=== PATIENT | female | born 1970 | race Caucasian/White ===

== ENCOUNTER → 2016-12-12 | Outpatient (REF) | payer MEDICARE, MEDICAID | LOC: M LAB REF 12:24 | PROVIDERS: ATTEND Physician Assistant Medical | DX: J02.9 Acute pharyngitis, unspecified (principal) ==

== ENCOUNTER → 2017-06-30 | Outpatient (CLI) | payer MEDICARE, MEDICAID ==
--- NOTE | 2017-06-30 10:47 | REPMRS ---
Patient History The patient states she had a clinical breast exam in 05/31 Patient is nulliparous. Family history of prostate cancer in maternal grandfather. Took unspecified hormones for 1 year. Digital Woman Screen Mammo: June 30, 2017 - Exam #: [id number] Bilateral CC and MLO view(s) were taken. Technologist: Kimberly Wells, Technologist Prior study comparison: July 03, 2016, digital woman screen mammo performed at [facility]. June 27, 2015, digital woman screen mammo performed at [facility] to [facility]. FINDINGS: The breast tissue is heterogeneously dense. This may lower the sensitivity of mammography. There has been no change in the appearance of the mammogram from the prior studies. There is a moderate amount of residual fibroglandular tissue which is fairly symmetric. There is no interval development of dominant mass, areas of architectural distortion, or clustered microcalcification typical of malignancy. ASSESSMENT: BI-RADS/ACR category 1 mammogram. Negative. Recommendation Routine screening mammogram in 1 year (for women over age 40). This mammogram was interpreted with the aid of an FDA-approved computer-aided dectection system. Electronically Signed By: Ethan Guaman MD 06/30/17 [id number]
== END ==
LOC: M WHC 09:17
PROVIDERS: ATTEND Physician Assistant
DX: Z12.31 Encounter for screening mammogram for malignant neoplasm of breast (principal)

== ENCOUNTER → 2018-06-06 | Outpatient (REF) | payer MEDICARE, MEDICAID | LOC: M LAB REF 21:27 | DX: J02.9 Acute pharyngitis, unspecified (principal) | CPT/HCPCS: 87070 ==

== ENCOUNTER 2018-06-27 09:59 | Emergency (ER) | payer MEDICARE, MEDICAID | END 2018-06-27 10:15 | disposition left against medical advice (07) | LOC: M ED 09:59 | DX: Z53.21 Procedure and treatment not carried out due to patient leaving prior to being seen by health care provider (principal) ==

== ENCOUNTER → 2018-06-30 | Outpatient (CLI) | payer MEDICARE, MEDICAID | LOC: M WHC 09:17 | DX: Z12.31 Encounter for screening mammogram for malignant neoplasm of breast (principal); Z92.29 Personal history of other drug therapy | CPT/HCPCS: 77067 ==

== ENCOUNTER 2018-09-29 09:30 | Emergency (ER) | payer MEDICARE, MEDICAID ==
[~2018-09-29] VITALS: Ht 162.6 cm; Wt 70.4 kg
[2018-09-29] MEDS ORDERED: DIAZ5TAB (09:47)
[2018-09-29] MEDS ORDERED: AMIT10TA (09:47)
[2018-09-29] MEDS ORDERED: LORA-243 (09:47)
[2018-09-29] MEDS ORDERED: CHLOR10TA (09:47)
[2018-09-29 10:25] LABS: HEMATOCRIT 46.9 % (36.0-47.0); HEMOGLOBIN 15.6 g/dl (12.0-15.5); MEAN CORPUSCULAR HEMOGLOBIN 28.3 pg (27.0-33.0); MEAN CORPUSCULAR HGB CONC 33.3 g/dl (32.0-36.5); PLATELET COUNT, AUTOMATED 255 10^3/uL (150-450); RED BLOOD COUNT 5.52 10^6/uL (4.00-5.40); WHITE BLOOD COUNT 9.2 10^3/uL (4.0-10.0)
[2018-09-29 10:49] LABS: BLOOD UREA NITROGEN 15 MG/DL (7-18); CALCIUM LEVEL 8.9 MG/DL (8.5-10.1); CARBON DIOXIDE LEVEL 26 MEQ/L (21-32); CHLORIDE LEVEL 108 MEQ/L (98-107); CREATININE FOR GFR 0.82 MG/DL (0.55-1.30); GLOMERULAR FILTRATION RATE > 60.0 (>58); GLUCOSE, FASTING 122 MG/DL (70-100); POTASSIUM SERUM 4.3 MEQ/L (3.5-5.1); SODIUM LEVEL 140 MEQ/L (136-145)
--- NOTE | 2018-09-29 11:36 | REP ---
Pelvic sonography: History: Abnormal vaginal bleeding. Sonographic findings: Transabdominal scanning demonstrates uterine dimensions of 7.2 x 4.2 x 5.9 cm. Nabothian cyst is visible in the cervix. Endometrial echo 0.3 cm thick and centrally placed. Urinary bladder crooks are smooth. Calculated filled bladder volume is 478 ml. Normal ovaries are seen bilaterally. Right ovarian dimensions are 2.4 x 1.0 x 1.3 cm. The left ovary measures 2.3 x 1.4 x 2.3 cm. Impression: No significant abnormality noted. Nabothian cyst in the cervix. Electronically Signed by Alexandru Carrera MD 09/29/2018 11:28 A
[2018-09-29 11:52] VITALS: BP 141/80
== END 2018-09-29 11:53 | disposition home or self-care (01) ==
LOC: M ED 09:30
DX: N88.8 Other specified noninflammatory disorders of cervix uteri (principal)

== ENCOUNTER 2019-01-27 09:24 | Emergency (ER) | payer MEDICARE, MEDICAID ==
[~2019-01-27] VITALS: Ht 162.6 cm; Wt 70.9 kg
[~2019-01-27 09:24] MED LIST: AMIT10TA; CHLOR10TA; DIAZ5TAB; LORA-243
[2019-01-27 09:25] VITALS: BP 133/75
[2019-01-27] MEDS ORDERED: SULF1TAB93 (10:05)
[2019-01-27] MEDS ORDERED: AUGM875T28 PO (10:06)
== END 2019-01-27 10:22 | disposition home or self-care (01) ==
LOC: M ED 09:24
DX: S61.251A Open bite of left index finger without damage to nail, initial encounter (principal); W55.01XA Bitten by cat, initial encounter; Y92.018 Other place in single-family (private) house as the place of occurrence of the external cause; F33.9 Major depressive disorder, recurrent, unspecified; F41.9 Anxiety disorder, unspecified; Z79.899 Other long term (current) drug therapy; Z88.1 Allergy status to other antibiotic agents; Z88.8 Allergy status to other drugs, medicaments and biological substances; F17.210 Nicotine dependence, cigarettes, uncomplicated

== ENCOUNTER 2019-01-28 08:59 | Emergency (ER) | payer MEDICARE, MEDICAID ==
[~2019-01-28] VITALS: Ht 162.6 cm; Wt 70.9 kg
[2019-01-28 08:59] VITALS: BP 152/76
[~2019-01-28 08:59] MED LIST changes: +AUGM875T28 PO; +SULF1TAB93
[2019-01-28] MEDS ORDERED: DERMABOND TOPICAL SKIN ADHESIVE TOP ONE (09:45)
== END 2019-01-28 09:56 | disposition home or self-care (01) ==
LOC: M ED 08:59
DX: S60.478A Other superficial bite of other finger, initial encounter (principal); W55.01XA Bitten by cat, initial encounter; Y92.9 Unspecified place or not applicable; Y93.K9 Activity, other involving animal care; Y99.9 Unspecified external cause status; R73.03 Prediabetes; Z72.0 Tobacco use; Z79.899 Other long term (current) drug therapy; Z88.8 Allergy status to other drugs, medicaments and biological substances; Z88.1 Allergy status to other antibiotic agents

== ENCOUNTER → 2019-06-22 | Outpatient (REF) | payer MEDICARE, MEDICAID ==
[2019-06-24 14:29] LABS: HPV HYBRID CAPTURE II Negative (Negative)
== END ==
LOC: M SFHCWAGY 11:35
PROVIDERS: ATTEND Nurse Practitioner Family
DX: Z12.4 Encounter for screening for malignant neoplasm of cervix (principal)
CPT/HCPCS: 87624; G0123

== ENCOUNTER → 2019-06-22 | Outpatient (CLI) | payer MEDICARE, MEDICAID ==
--- NOTE | 2019-06-22 12:32 | REPMRS ---
Patient History The patient states she had a clinical breast exam in 06/2019. Family history of prostate cancer in maternal grandfather. Took unspecified hormones for 1 year. 3D TOMOSYNTHESIS WAS PERFORMED. The Candy Wong lifetime risk for breast cancer is 9.9%. Digital Woman Screen Mammo: June 22, 2019 - Exam #: [id number] Bilateral CC and MLO view(s) were taken. Technologist: Kimberly Wells, Technologist Prior study comparison: June 30, 2018, bilateral digital woman screen mammo performed at [facility]. June 30, 2017, digital woman screen mammo performed at [facility]. FINDINGS: The breast tissue is heterogeneously dense. This may lower the sensitivity of mammography. There has been no change in the appearance of the mammogram from the prior studies. There is a moderate amount of residual fibroglandular tissue which is fairly symmetric. There is no interval development of dominant mass, areas of architectural distortion, or clustered microcalcification typical of malignancy. Assessment: BI-RADS/ACR category 1 mammogram. Negative Mammogram. Recommendation Routine screening mammogram in 1 year (for women over age 40). This mammogram was interpreted with the aid of an FDA-approved computer-aided dectection system. Electronically Signed By: Ethan Guaman MD 06/22/19 [id number]
== END ==
LOC: M WHC 09:49
PROVIDERS: ATTEND Nurse Practitioner Family
DX: Z01.419 Encounter for gynecological examination (general) (routine) without abnormal findings (principal); Z12.31 Encounter for screening mammogram for malignant neoplasm of breast; Z80.42 Family history of malignant neoplasm of prostate; Z92.29 Personal history of other drug therapy
CPT/HCPCS: 77063; 77067; 87624; G0101; G0123

== ENCOUNTER 2020-06-06 09:29 | Emergency (ER) | payer MEDICARE, MEDICAID ==
[~2020-06-06] VITALS: Ht 162.6 cm; Wt 68.4 kg
[2020-06-06] MEDS ORDERED: GABA-843 (09:38)
[2020-06-06 11:03] LABS: BASO # 0.1 10^3/uL (0.0-0.2); BASO % 0.8 % (0.0-1.0); EOS # 0.1 10^3/uL (0.0-0.5); EOS % 0.7 % (0.0-3.0); HEMATOCRIT 46.7 % (36.0-47.0); HEMOGLOBIN 15.2 g/dl (12.0-15.5); LYMPH # 1.9 10^3/uL (1.5-5.0); LYMPH % 22.3 % (24.0-44.0); MEAN CORPUSCULAR HEMOGLOBIN 28.8 pg (27.0-33.0); MEAN CORPUSCULAR HGB CONC 32.5 g/dl (32.0-36.5); MEAN CORPUSCULAR VOLUME 88.4 fl (80.0-96.0); MONO # 0.6 10^3/uL (0.0-0.8); MONO % 7.2 % (0.0-5.0); NEUTROPHILS # 5.7 10^3/uL (1.5-8.5); NEUTROPHILS % 68.6 % (36.0-66.0); PLATELET COUNT, AUTOMATED 237 10^3/uL (150-450); RED BLOOD COUNT 5.28 10^6/uL (4.00-5.40); WHITE BLOOD COUNT 8.4 10^3/uL (4.0-10.0)
[2020-06-06 11:19] LABS: AMPHETAMINES LEVEL URINE NEGATIVE (NEGATIVE); BARBITURATES URINE NEGATIVE (NEGATIVE); BENZODIAZEPINES URINE POSITIVE (NEGATIVE); CANNABINOIDS URINE NEGATIVE (NEGATIVE); COCAINE METABOLITE URINE NEGATIVE (NEGATIVE); METHADONE URINE NEGATIVE (NEGATIVE); OPIATES URINE NEGATIVE (NEGATIVE); PHENCYCLIDINE URINE NEGATIVE (NEGATIVE)
[2020-06-06 11:33] LABS: ACETAMINOPHEN LEVEL < 2.0 UG/ML (10.0-30.0); ALBUMIN 3.9 GM/DL (3.2-5.2); ALT/SGPT 19 U/L (12-78); BILIRUBIN,DIRECT 0.1 MG/DL (0.0-0.2); BILIRUBIN,TOTAL 0.4 MG/DL (0.2-1.0); BLOOD UREA NITROGEN 14 MG/DL (7-18); CALCIUM LEVEL 9.1 MG/DL (8.5-10.1); CARBON DIOXIDE LEVEL 29 MEQ/L (21-32); CHLORIDE LEVEL 108 MEQ/L (98-107); CREATININE FOR GFR 0.89 MG/DL (0.55-1.30); ETHYL ALCOHOL (ETHANOL) < 0.003 % (0.000-0.010); GLOMERULAR FILTRATION RATE > 60.0 (>51); GLUCOSE, FASTING 107 MG/DL (70-100); LIPASE 77 U/L (73-393); POTASSIUM SERUM 4.7 MEQ/L (3.5-5.1); SALICYLATE LEVEL 6.9 MG/DL (5.0-30.0); SODIUM LEVEL 141 MEQ/L (136-145); TOTAL PROTEIN 7.4 GM/DL (6.4-8.2)
[2020-06-06 11:38] LABS: HCG, SERUM QUALITATIVE NEGATIVE (NEGATIVE)
--- NOTE | 2020-06-06 12:57 | REPVR ---
PROCEDURE INFORMATION: Exam: US Pelvis Complete, Transabdominal and US Pelvis, Transvaginal Exam date and time: 06/06/2020 12:30 PM Age: 49 years old Clinical indication: Menstruation abnormalities; Excessive menstruation; With regular cycle; Additional info: Bilat pelvic pain, heavy menstrual bleeding TECHNIQUE: Imaging protocol: Real-time transabdominal and transvaginal pelvic ultrasound (complete) with image documentation. Transvaginal imaging was used for better evaluation of the endometrium and adnexa. COMPARISON: US PELVIC NON-OB COMPLETE 09/29/2018 10:45 AM FINDINGS: Uterus/cervix: Uterus measures 9.0 x 4.6 x 6.0 cm. There is a simple 2.2 cm ventral cervical nabothian cyst. AP endometrial stripe thickness measures 3 mm. Right adnexa: Right ovary measures 1.3 by 1.3 x 1.0 cm. Positive blood flow. Left adnexa: Left ovary measures 1.3 x 1.4 x 0.6 yrs. Positive blood flow. Intraperitoneal space: None. Bladder: Normal. IMPRESSION: 1. Atrophic endometrium. 2. Incidental large cervical nabothian cyst. Electronically signed by: Elda Vazquez On 06/06/2020 12:57:10 PM
[2020-06-06 13:09] LABS: CHLAMYDIA DNA AMPLIFICATION NEGATIVE (NEGATIVE); GC DNA AMPLIFICATION NEGATIVE (NEGATIVE)
[2020-06-06 13:39] VITALS: BP 124/74
--- NOTE | 2020-06-08 16:49 | ED PDOC ---
Post-Departure Follow-Up pelvic us faxed to dr dill for fu Magali Cloud MD Jun 08, 2020 16:49
== END 2020-06-06 13:41 | disposition home or self-care (01) ==
LOC: M ED 09:29
DX: N88.8 Other specified noninflammatory disorders of cervix uteri (principal); N85.8 Other specified noninflammatory disorders of uterus; N92.0 Excessive and frequent menstruation with regular cycle; E11.9 Type 2 diabetes mellitus without complications; F17.200 Nicotine dependence, unspecified, uncomplicated; Z79.899 Other long term (current) drug therapy; Z88.1 Allergy status to other antibiotic agents; Z88.8 Allergy status to other drugs, medicaments and biological substances
CPT/HCPCS: 36415; 76830; 76856; 80048; 80076; 80307; 81001; 83690; 84443; 84703; 85025; 86850; 86900; 86901; 87210; 87661; 93976; 99284; G0480

== ENCOUNTER → 2020-06-25 | Outpatient (CLI) | payer MEDICARE, MEDICAID ==
[~2020-06-25] MED LIST changes: +GABA-843
--- NOTE | 2020-06-25 11:23 | REPMRS ---
Patient History The patient states she had a clinical breast exam in June 2020. Family history of prostate cancer in maternal grandfather. Took unspecified hormones for 1 year. Digital Woman Screen Mammo: June 25, 2020 - Exam #: [id number] Bilateral CC and MLO view(s) were taken. Technologist: Benita Henriquez Technologist Prior study comparison: June 22, 2019, bilateral digital woman screen mammo performed at [facility]. June 30, 2018, bilateral digital woman screen mammo performed at [facility]. June 30, 2017, digital woman screen mammo performed at [facility]. FINDINGS: The breast tissue is heterogeneously dense. This may lower the sensitivity of mammography. The Volpara volumetric breast density category is: C. There is a 10 mm fat density nodule in the left breast superiorly at approximately 12 o'clock unchanged. This may be a spur small lipoma or conceivably, an oil cyst. In any event, it is benign and unchanged. There is a moderate amount of heterogeneously dense fibroglandular tissue which is fairly symmetric. There is no interval development of dominant mass, architectural distortion, or grouped microcalcification typical of malignancy. There has been no change in the appearance of the mammogram from the prior studies. 3-D tomosynthesis shows no additional findings. Assessment: BI-RADS/ACR category 2 mammogram. Benign Findings. Recommendation Routine screening mammogram of both breasts in 1 year (for women over age 40). This patient's Lifetime Breast Cancer RIsk is estimated at 9.7 %. This mammogram was interpreted with the aid of an FDA-approved computer-aided dectection system. Electronically Signed By: Luis Carrera MD 06/25/20 [id number]
== END ==
LOC: M WHC 09:43
PROVIDERS: ATTEND Nurse Practitioner Family
DX: Z01.419 Encounter for gynecological examination (general) (routine) without abnormal findings (principal); Z12.31 Encounter for screening mammogram for malignant neoplasm of breast; Z92.29 Personal history of other drug therapy; N63.25 Unspecified lump in the left breast, overlapping quadrants
CPT/HCPCS: 77063; 77067; G0101

== ENCOUNTER → 2020-11-20 | Outpatient (REF) | payer MEDICARE, MEDICAID ==
[~2020-11-20] MED LIST changes: -AMIT10TA; +AMIT10TA7; +GABA-282; -GABA-843
== END ==
LOC: M WUC 19:53
PROVIDERS: ATTEND Physician Assistant
DX: J02.9 Acute pharyngitis, unspecified (principal)

== ENCOUNTER → 2021-01-22 | Outpatient (REF) | payer MEDICARE, MEDICAID ==
[~2021-01-22] MED LIST changes: +BACTDSTA; -SULF1TAB93
[2021-01-22 13:04] LABS: APPEARANCE, URINE HAZY (CLEAR); BACTERIA, URINE AUTO 1+ (NEGATIVE); BILIRUBIN, URINE AUTO NEGATIVE (NEGATIVE); BLOOD, URINE BLOOD NEGATIVE (NEGATIVE); COLOR, URINE STRAW (YELLOW); GLUCOSE, URINE (UA) AUTO NEGATIVE (NEGATIVE); KETONE, URINE AUTO NEGATIVE (NEGATIVE); LEUKOCYTE ESTERASE, URINE AUTO NEGATIVE (NEGATIVE); MUCUS, URINE SMALL (NEGATIVE); NITRITE, URINE AUTO NEGATIVE (NEGATIVE); PROTEIN, URINE AUTO NEGATIVE (NEGATIVE); RBC, URINE AUTO 0 /HPF (0-3); SPECIFIC GRAVITY URINE AUTO 1.003 (1.002-1.035); SQUAMOUS EPITHELIAL CELL UR AU 2 /HPF (0-6); UROBILINOGEN, URINE AUTO 0.2 mg/dL (0.0-2.0); WBC, URINE AUTO 0 /HPF (0-3)
== END ==
LOC: M LAB REF 12:24
PROVIDERS: ATTEND Physician Assistant Medical
DX: N39.0 Urinary tract infection, site not specified (principal)

== ENCOUNTER 2021-02-12 16:43 | Inpatient (IN) | payer MEDICARE, MEDICAID ==
[~2021-02-12] VITALS: Ht 162.6 cm; Wt 68.0 kg
[~2021-02-12 16:43] MED LIST changes: -AMIT10TA7; +AMIT10TA7 PO; -CHLOR10TA; +CHLOR10TA PO; -DIAZ5TAB; +DIAZ5TAB PO; -LORA-243; +LORA-243 PO
[2021-02-12] MEDS ORDERED: BACTDSTA PO (18:36)
[2021-02-12] MEDS ORDERED: diazePAM 2 MG TAB PO ONE (18:40)
[2021-02-12] MEDS ORDERED: diazePAM 5MG TABLET PO ONE (18:45)
[2021-02-12 18:59] LABS: HEMOGLOBIN 15.6 g/dl (12.0-15.5); MEAN CORPUSCULAR HEMOGLOBIN 29.3 pg (27.0-33.0); MEAN CORPUSCULAR HGB CONC 32.5 g/dl (32.0-36.5); MEAN CORPUSCULAR VOLUME 90.1 fl (80.0-96.0); PLATELET COUNT, AUTOMATED 262 10^3/uL (150-450); RED BLOOD COUNT 5.33 10^6/uL (4.00-5.40)
[2021-02-12 19:28] LABS: ACETAMINOPHEN LEVEL < 2.0 UG/ML (10.0-30.0); ALBUMIN 4.1 GM/DL (3.2-5.2); ALT/SGPT 22 U/L (12-78); AMPHETAMINES LEVEL URINE NEGATIVE (NEGATIVE); BARBITURATES URINE NEGATIVE (NEGATIVE); BENZODIAZEPINES URINE POSITIVE (NEGATIVE); BILIRUBIN,DIRECT 0.1 MG/DL (0.0-0.2); BILIRUBIN,TOTAL 0.3 MG/DL (0.2-1.0); BLOOD UREA NITROGEN 15 MG/DL (7-18); CANNABINOIDS URINE NEGATIVE (NEGATIVE); CARBON DIOXIDE LEVEL 28 MEQ/L (21-32); CHLORIDE LEVEL 105 MEQ/L (98-107); COCAINE METABOLITE URINE NEGATIVE (NEGATIVE); CREATININE FOR GFR 0.87 MG/DL (0.55-1.30); ETHYL ALCOHOL (ETHANOL) < 0.003 % (0.000-0.010); GLOMERULAR FILTRATION RATE > 60.0 (>51); GLUCOSE, FASTING 106 MG/DL (70-100); METHADONE URINE NEGATIVE (NEGATIVE); OPIATES URINE NEGATIVE (NEGATIVE); PHENCYCLIDINE URINE NEGATIVE (NEGATIVE); POTASSIUM SERUM 4.2 MEQ/L (3.5-5.1); SALICYLATE LEVEL 7.3 MG/DL (5.0-30.0); SODIUM LEVEL 138 MEQ/L (136-145); TOTAL PROTEIN 7.7 GM/DL (6.4-8.2)
[2021-02-12 19:47] LABS: HCG, SERUM QUALITATIVE NEGATIVE (NEGATIVE)
[2021-02-12] MEDS ORDERED: DIAZ5TAB PO (20:37)
[2021-02-12] MEDS: BACTRIM 160MG/800MG DS TAB PO SCH (20:45)
[2021-02-12] MEDS: chlorproMAZINE 25 MG TABLET PO SCH (20:45)
[2021-02-12] MEDS ORDERED: AMITRIPTYLINE 10MG TABLET PO SCH (21:00)
[2021-02-12] MEDS ORDERED: BACTRIM 160MG/800MG DS TAB PO SCH (21:00)
[2021-02-13] MEDS: NICOTINE 21MG/24HR 1 EA TRANSDERMAL TD SCH (09:00)
[2021-02-13] MEDS ORDERED: diazePAM 5MG TABLET PO SCH ×3 (09:00→21:00)
[2021-02-13] MEDS ORDERED: PILL CUTTER 1 EACH XX PRN ×2 (09:15→20:15)
[2021-02-13] MEDS: chlorproMAZINE 25 MG TABLET PO SCH (09:26)
[2021-02-13] MEDS: BACTRIM 160MG/800MG DS TAB PO SCH ×2 (09:27→21:00)
[2021-02-13] MEDS: diazePAM 5MG TABLET PO SCH ×2 (09:35→11:54)
[2021-02-13] MEDS ORDERED: chlorproMAZINE 25 MG TABLET PO SCH ×4 (12:00→21:00)
[2021-02-13 14:27] LABS: RSV AMPLIFICATION NEGATIVE (NEGATIVE)
[2021-02-13] MEDS ORDERED: traZODone 50 MG TAB PO PRN (18:05)
[2021-02-13] MEDS ORDERED: ALBUTEROL 90 MCG/ACT 8GM HFA INHALER INH PRN (18:05)
[2021-02-13] MEDS ORDERED: ACETAMINOPHEN TAB 650MG DOSE (2X325MG) PO PRN (18:05)
[2021-02-13] MEDS ORDERED: diazePAM 5MG TABLET PO PRN (18:05)
[2021-02-13] MEDS ORDERED: MAALOX 30 ML SUSP *UDC PO PRN (18:05)
[2021-02-13] MEDS ORDERED: MOM 30ML SUSPENSION UDC PO PRN (18:05)
[2021-02-13] MEDS ORDERED: ChlorproMAZINE 100 MG TABLET PO SCH (21:00)
[2021-02-13] MEDS ORDERED: AMITRIPTYLINE 10MG TABLET PO SCH (21:00)
[2021-02-13 21:19] VITALS: BP 144/92
[2021-02-14] MEDS: BACTRIM 160MG/800MG DS TAB PO SCH (07:56)
[2021-02-14] MEDS: NICOTINE 21MG/24HR 1 EA TRANSDERMAL TD SCH (07:57)
[2021-02-14] MEDS ORDERED: chlorproMAZINE 25 MG TABLET PO SCH (09:00)
[2021-02-14] MEDS ORDERED: diazePAM 5MG TABLET PO SCH (09:00)
--- NOTE | 2021-02-14 10:23 | MHHPEPDOC ---
General Date Of Admission: Feb 13, 2021 Legal Status: 9.39 Chief Complaint I was just upset with the senior financial consultant because my father 2 days ago". History of Present Illness HISTORY OF THE PRESENT ILLNESS: Patient is a 50 -year-old , female, who [has no prior psychiatric history was brought to the emergency room by ambulance after she had an argument on the phone with the senior financial consultant and reportedly made a suicidal statement. Patient stated that her father who is 85 years old, from complication after a recent surgery after being discharged from [facility]. Apparently, at home last Thursday and is scheduled for tomorrow. She had some issues with her credit card and went to a bank and then got into an argument with the quileute and later called her back and had more argument, ended up saying that she felt like being like her father. She reports that the quileute overreacted and called an ambulance and police and was brought to emergency room. She is denying any ongoing major depression. Denies any suicidal or thoughts, plan or intent and has no history of suicidal attempt and is very anxious to go home to be able to go to the .]. Psychiatric Review of Systems Depression (2 or more weeks): depressed mood, other (upset over the of her father) Nurys (4 or more days of): denies Psychosis: denies PTSD: denies Anxiety: situational anxiety, stressor related anxiety Past Psychiatric History Previous Psychiatric Diagnosis: None. Previous Psychiatric Admissions: None. Suicide Attempts: . Denies Psychiatric Follow-up: . None Psychiatric medications: ., Taking amitriptyline and Thorazine for chronic pain and nausea, prescribed by her primary care doctor Past Medical History Medical Problems Multiple chronic medical condition Head Injury: No Seizures: No Hospitalizations: No Surgeries: No Family Medical/Psychiatric HX Medical Problems Noncontributory Psychiatric Disorders: No Addiction: No Suicide Attemps/Completions: No Addiction History denies Social History Childhood: [Unremarkable]. Abuse/Trauma:[Denies]. Current Living Situation: [Lives alone nearby her parents home]. Education: . High school Employment: . Used to work in retail, currently on SSD Social Support: , Mother. Legal: . No legal history Marital: ., Never Mental Status Examination General Appearance: appears stated age Build: average Demeanor: average Eye Contact: average Activity: average Behavior: cooperative Speech: clear, pressured, spontaneous, normal volume Mood: anxious Mood Been feeling upset and anxious with the father's Affect: full, appropriate, congruent, anxious Thought Process: logical/linear Thought Content (Delusions): none reported Thought Content (Other): none reported Thought Content (Aggressive): none reported Perception (Hallucinations): none reported Perception (Other): none reported Cognition (Impairment of): none reported Cognition(Intelligence Est.): average Oriented: Awake, Alert, Oriented times three Insight: fair Judgment: Fair Psychosis: Denies Diagnoses Adjustment disorder with mixed emotion A-FIB/CHADSVASC A-FIB History Current/History of A-Fib/PAF?: No Current PO Anticoag Therapy: No Age/Risk Factor Scoring CHADSVASC: CHADSVASC Response (Comments) Value Gender Risk Factor Female 1 Hx of CHF No 0 Hx of HTN No 0 Hx of Stroke/TIA/or VTE No 0 Hx of Diabetes No 0 Hx of Vascular Disease No 0 Total 1 Treatment Treatment ordered: NONE Assessment She is not showing any serious ongoing depression issues and doesn't appear to be suicidal at all. We will discharge her so she can attend the service. Initial Treatment Plan 1. Patient was admitted on a [9.39] status. 2. Complete history was obtained. 3. With patients permission, family will be contacted and database will be expanded. 4. Patients medication regimen will be reviewed and changed accordingly. 5. Patient will be provided with protected environment. 6. Patient will be treated with individual, group, and milieu therapies. 7. Patient will receive supportive psych-education. 8. Discharge planning will commence immediately. 9. Outpatient follow-up treatment will be strongly recommended. 10. The initial treatment plan will focus initially on: * Depression. * Risk for suicide. ESTIMATED LENGTH OF STAY: [Discharge today]- DAYS. TIME SPENT COUNSELING AND COORDINATING INITIAL CARE: 45 minutes. Tobacco Cessation Screen If Patient is a Smoker Patient does not want any smoke cessation treatment N/A-No Antipsychotics Vital Signs Vital Signs Date Time Temp Pulse Resp B/P (MAP) Pulse Ox O2 Delivery O2 Flow Rate FiO2 02/14/21 08:52 Room Air 02/13/21 21:19 97.1 85 18 144/92 (109) 96 Laboratory Data 24H Labs Laboratory Tests 2 02/13/21 13:26: Coronavirus (COVID-19)(PCR) NEGATIVE, Influenza Type A (RT-PCR) NEGATIVE, Influenza Type B (RT-PCR) NEGATIVE, Respiratory Syncytial Virus (PCR) NEGATIVE Medications Scheduled Amitriptyline HCl (Amitriptyline HCl) 10 Mg Tab, 10 MG PO QHS, (Reported) Chlorpromazine HCl (Chlorpromazine HCl) 10 Mg Tab, 10 MG PO TID, (Reported) Diazepam (Diazepam) 5 Mg Tab, 5 MG PO BID, (Reported) Loratadine (Loratadine) 10 Mg Tab, 10 MG PO DAILY, (Reported) Sulfamethoxazole/Trimethoprim (Sulfamethoxazole-Tmp Ds Tablet) 1 Each Tablet, 1 TAB PO BID, (Reported) Scheduled PRN Diazepam (Diazepam) 5 Mg Tablet, 2.5 MG PO QPM PRN for ANXIETY, (Reported) @ 1700 Allergies Coded Allergies: fexofenadine (Verified Allergy, Mild, 01/28/19) lithium (Verified Allergy, Mild, 01/28/19) risperidone (Verified Allergy, Mild, 01/28/19) clindamycin (Verified Allergy, Unknown, 01/28/19) MUNIR BENOIT M.D. Feb 14, 2021 10:23
--- NOTE | 2021-02-14 10:28 | MHDSPDOC ---
[facility] Discharge Summary Discharge Summary DATE OF ADMISSION: Feb 13, 2021 at 18:04 DATE OF DISCHARGE: 02/14/2021 DISCHARGE DIAGNOSES: 1. . Adjustment disorder with mixed emotion 2. . REASON FOR ADMISSION: [The patient was admitted on after she made and emotional statement after recent of her father. She denies any lethality issues.] CONSULTANTS INVOLVED: [None] TREATMENT AND PROGRESS ON THE UNIT : Patient was seen for supportive therapy and lethality evaluation and didn't show any signs or symptoms of major depression and does not appear to be suicidal and does not meet the criteria for 939 on admission. HOSPITAL COURSE: [Will be discharged home] DISCHARGE ASSESSMENT: [Stable and not suicidal] MENTAL STATUS EXAMINATION ON DISCHARGE: Patient is a [50]-year old female, who is [, anxious, pressured but cooperative]. Speech is [rational, coherent, pressured]. Language skills are [good]. Thought processes including: [, Organized]. Thought content: [More suicidal thoughts]. Abstract reasoning, and computation: [Good]. Description of associations: [Well-organized]. Description of abnormal or psychotic thoughts: [None. Judgment: [, Fair]. Insight: [Good]. Orientation to [, well oriented]. Recent and remote memory: [Good]. Attention span and concentration: [Good]. Language: . Fund of knowledge: [Average]. Mood: , Anxious, upset, but not seriously depressed. Affect: ., Appropriate MEDICATIONS ON DISCHARGE: - for .. No new psychotropic medication. She can continue her home medications - for . - for . PLAN/FOLLOWUP ARRANGEMENTS: [Recommend outpatient counseling for grief]. The amount of time spent in the coordination of care for this patient was approximately [30] minutes. ETOH/Disorder Med Rx ETOH/DRUG DISORDER RX: N/A Vital Signs/I&Os Vital Signs Date Time Temp Pulse Resp B/P (MAP) Pulse Ox O2 Delivery O2 Flow Rate FiO2 02/14/21 08:52 Room Air 02/13/21 21:19 97.1 85 18 144/92 (109) 96 Laboratory Data Labs 24H Laboratory Tests 2 02/13/21 13:26: Coronavirus (COVID-19)(PCR) NEGATIVE, Influenza Type A (RT-PCR) NEGATIVE, Influenza Type B (RT-PCR) NEGATIVE, Respiratory Syncytial Virus (PCR) NEGATIVE Medications Scheduled Amitriptyline HCl (Amitriptyline HCl) 10 Mg Tab, 10 MG PO QHS, (Reported) Chlorpromazine HCl (Chlorpromazine HCl) 10 Mg Tab, 10 MG PO TID, (Reported) Diazepam (Diazepam) 5 Mg Tab, 5 MG PO BID, (Reported) Loratadine (Loratadine) 10 Mg Tab, 10 MG PO DAILY, (Reported) Sulfamethoxazole/Trimethoprim (Sulfamethoxazole-Tmp Ds Tablet) 1 Each Tablet, 1 TAB PO BID, (Reported) Scheduled PRN Diazepam (Diazepam) 5 Mg Tablet, 2.5 MG PO QPM PRN for ANXIETY, (Reported) @ 1700 Allergies Coded Allergies: fexofenadine (Verified Allergy, Mild, 01/28/19) lithium (Verified Allergy, Mild, 01/28/19) risperidone (Verified Allergy, Mild, 01/28/19) clindamycin (Verified Allergy, Unknown, 01/28/19) MUNIR BENOIT M.D. Feb 14, 2021 10:28
--- NOTE | 2021-02-14 11:26 | HPEPDOC ---
[facility] Medical History & Physical Date of Admission Feb 13, 2021 Date of Service: Feb 14, 2021 Attending Physician: Yolanda Sandra MD History and Physical Medical history and physical HISTORY OF PRESENT ILLNESS: Patient is a 50-year-old female with past medical history of anxiety, tobacco abuse use, depression, fibrocystic disease of the breasts, IBS and chronic back pain who was admitted to [facility] for unspecified oppressive disorder, questionable suicidal ideation. According to ER records and notes the patient had some suicidal ideations with the recent of her father. She had also was displaying some evidence of delusions, depressed mood, poor concentration, grandiose thoughts and was agitated. On my dilation today the patient denies any auditory or visual hallucinations, depressions, anxiety but admits to sadness with the passing of her father recently. The patient denies chest pain, shortness of breath, nausea, vomiting, diarrhea, poor sleep, poor appetite. REVIEW OF SYSTEMS: Neg except for what is mentioned above PAST MEDICAL HISTORY: anxiety, tobacco abuse use, depression, fibrocystic disease of the breasts, IBS and chronic back pain PAST SURGICAL HISTORY: teeth removal FAMILY HISTORY: Father: HTN. at 85 y/o Mother: DM. alive SOCIAL HISTORY: tobacco use , 1 PPD for > 10 years. Denies alcohol or illicit drug use. Unemployed, disabled. Lives alone. Full Code. ALLERGIES: Please see below. HOME MEDICATIONS: Please see below. PHYSICAL EXAMINATION: VS: Stable CONSTITUTIONAL: No acute distress, resting comfortably, AAO x 3 EYES: PERRLA, EOM intact HENT, MOUTH: Normocephalic, atraumatic, moist mucous membranes NECK: SUPPLE, no JVD, no lymphadenopathy, no carotid bruit CV: Regular rate and rhythm, S1S2 normal, no murmurs/rubs/gallops RESPIRATORY: Clear to auscultation bilaterally, no rales/rhonchi/wheezes GI: BS positive in 4 quadrants, soft, nontender, nondistended, no rebound or guarding, no organomegaly : Deferred MUSCULOSKELETAL: Normal ROM. No cyanosis, clubbing, swelling, joint deformity, extremity edema INTEGUMENTARY: Intact, no rashes, no lesions, no erythema NEUROLOGIC: Cranial Nerves II-XII are intact, no focal deficits PSYCHIATRIC: Mood and affect are normal LABORATORY DATA: Please see below IMAGING: None ASSESSMENT: 50 y/o F admitted to [facility] for unspecified depressive disorder, ? suicidal ideations. PLAN: Unspecified depressive disorder, ? suicidal ideations -Plan per psychiatry Anxiety -Plan per psychiatry IBS -Stable -F/u PCP Fibrocystic breast disease -F/u o/p Chronic back pain -Stable DISPOSITION: Thank you kindly for this consult. At that time will sign off on case. If we are needed for reconsult please let us know Vital Signs Vital Signs Date Time Temp Pulse Resp B/P (MAP) Pulse Ox O2 Delivery O2 Flow Rate FiO2 02/14/21 08:52 Room Air 02/13/21 21:19 97.1 85 18 144/92 (109) 96 Laboratory Data Labs 24H Laboratory Tests 2 02/13/21 13:26: Coronavirus (COVID-19)(PCR) NEGATIVE, Influenza Type A (RT-PCR) NEGATIVE, Influenza Type B (RT-PCR) NEGATIVE, Respiratory Syncytial Virus (PCR) NEGATIVE Home Medications Scheduled Amitriptyline HCl (Amitriptyline HCl) 10 Mg Tab, 10 MG PO QHS Chlorpromazine HCl (Chlorpromazine HCl) 10 Mg Tab, 10 MG PO TID Diazepam (Diazepam) 5 Mg Tab, 5 MG PO BID Loratadine (Loratadine) 10 Mg Tab, 10 MG PO DAILY Sulfamethoxazole/Trimethoprim (Sulfamethoxazole-Tmp Ds Tablet) 1 Each Tablet, 1 TAB PO BID Scheduled PRN Diazepam (Diazepam) 5 Mg Tablet, 2.5 MG PO QPM PRN for ANXIETY @ 1700 Allergies Coded Allergies: fexofenadine (Verified Allergy, Mild, 01/28/19) lithium (Verified Allergy, Mild, 01/28/19) risperidone (Verified Allergy, Mild, 01/28/19) clindamycin (Verified Allergy, Unknown, 01/28/19) A-FIB/CHADSVASC A-FIB History Current/History of A-Fib/PAF?: No Current PO Anticoag Therapy: No Age/Risk Factor Scoring CHADSVASC: CHADSVASC Response (Comments) Value Age Risk Factor Age < 65 years old 0 Gender Risk Factor Female 1 Hx of CHF No 0 Hx of HTN No 0 Hx of Stroke/TIA/or VTE No 0 Hx of Diabetes No 0 Hx of Vascular Disease No 0 Total 1 Treatment Treatment ordered: NONE Yolanda Sandra MD Feb 14, 2021 11:26
== END 2021-02-14 11:58 | disposition home or self-care (01) | DRG 882 ==
LOC: M ED 16:43 → M ED INP 02-13 18:04 → M PSY 02-13 21:10
PROVIDERS: ADMIT Psychiatry & Neurology Psychiatry; ATTEND Psychiatry & Neurology Psychiatry
DX: F43.25 Adjustment disorder with mixed disturbance of emotions and conduct (principal); R45.851 Suicidal ideations; Z63.4 Disappearance and death of family member; Z20.822 Contact with and (suspected) exposure to COVID-19; Z79.899 Other long term (current) drug therapy; Z88.1 Allergy status to other antibiotic agents; Z88.8 Allergy status to other drugs, medicaments and biological substances; F17.210 Nicotine dependence, cigarettes, uncomplicated; F41.9 Anxiety disorder, unspecified; M54.5 Low back pain; K58.9 Irritable bowel syndrome, unspecified; N60.11 Diffuse cystic mastopathy of right breast; N60.12 Diffuse cystic mastopathy of left breast

== ENCOUNTER → 2021-06-11 | Outpatient (REF) | payer MEDICARE, MEDICAID ==
[~2021-06-11] MED LIST changes: +BACTDSTA PO
== END ==
LOC: M LAB REF 16:32
PROVIDERS: ATTEND Physician Assistant Medical
DX: J02.9 Acute pharyngitis, unspecified (principal)

== ENCOUNTER → 2021-07-03 | Outpatient (REF) | payer MEDICARE, MEDICAID ==
[2021-07-03 17:50] LABS: URINE PREG TEST NEGATIVE (NEGATIVE)
[2021-07-03 18:02] LABS: APPEARANCE, URINE HAZY (CLEAR); BACTERIA, URINE AUTO 1+ (NEGATIVE); BILIRUBIN, URINE AUTO NEGATIVE (NEGATIVE); BLOOD, URINE BLOOD NEGATIVE (NEGATIVE); COLOR, URINE YELLOW (YELLOW); GLUCOSE, URINE (UA) AUTO NEGATIVE (NEGATIVE); KETONE, URINE AUTO NEGATIVE (NEGATIVE); LEUKOCYTE ESTERASE, URINE AUTO NEGATIVE (NEGATIVE); NITRITE, URINE AUTO NEGATIVE (NEGATIVE); PROTEIN, URINE AUTO NEGATIVE (NEGATIVE); RBC, URINE AUTO 0 /HPF (0-3); SPECIFIC GRAVITY URINE AUTO 1.008 (1.002-1.035); SQUAMOUS EPITHELIAL CELL UR AU 4 /HPF (0-6); UROBILINOGEN, URINE AUTO 0.2 mg/dL (0.0-2.0); WBC, URINE AUTO 0 /HPF (0-3)
== END ==
LOC: M LAB REF 16:49
PROVIDERS: ATTEND Physician Assistant
DX: R30.0 Dysuria (principal)

== ENCOUNTER → 2021-11-14 | Outpatient (REF) | payer MEDICARE, MEDICAID ==
[2021-11-14 13:51] LABS: APPEARANCE, URINE CLEAR (CLEAR); BACTERIA, URINE AUTO NEGATIVE (NEGATIVE); BILIRUBIN, URINE AUTO NEGATIVE (NEGATIVE); BLOOD, URINE BLOOD 1+ (NEGATIVE); COLOR, URINE STRAW (YELLOW); GLUCOSE, URINE (UA) AUTO NEGATIVE (NEGATIVE); KETONE, URINE AUTO NEGATIVE (NEGATIVE); LEUKOCYTE ESTERASE, URINE AUTO 1+ (NEGATIVE); NITRITE, URINE AUTO NEGATIVE (NEGATIVE); PROTEIN, URINE AUTO NEGATIVE (NEGATIVE); RBC, URINE AUTO 1 /HPF (0-3); SPECIFIC GRAVITY URINE AUTO 1.002 (1.002-1.035); SQUAMOUS EPITHELIAL CELL UR AU 2 /HPF (0-6); UROBILINOGEN, URINE AUTO 0.2 mg/dL (0.0-2.0); WBC, URINE AUTO 15 /HPF (0-3)
[2021-11-14 15:14] LABS: GC DNA AMPLIFICATION NEGATIVE (NEGATIVE)
== END ==
LOC: M LAB REF 12:46
PROVIDERS: ATTEND Physician Assistant Medical
DX: N39.0 Urinary tract infection, site not specified (principal)

== ENCOUNTER → 2021-12-10 | Outpatient (CLI) | payer MEDICARE, MEDICAID | LOC: M RAD 14:54 | PROVIDERS: ATTEND Physician Assistant Medical | DX: R10.9 Unspecified abdominal pain (principal) ==

== ENCOUNTER → 2022-07-08 | Outpatient (CLI) | payer MEDICARE, MEDICAID | LOC: M WHC 14:11 | PROVIDERS: ATTEND Advanced Practice Midwife | DX: Z12.31 Encounter for screening mammogram for malignant neoplasm of breast (principal) ==

== ENCOUNTER → 2023-04-12 | Outpatient (REF) | payer MEDICARE, MEDICAID | LOC: M LAB REF 18:28 | PROVIDERS: ATTEND Physician Assistant | DX: R51.9 Headache, unspecified (principal) ==

== ENCOUNTER → 2023-05-30 | Outpatient (REF) | payer MEDICARE, MEDICAID | LOC: M LAB REF 19:26 | PROVIDERS: ATTEND Physician Assistant Medical | DX: L02.01 Cutaneous abscess of face (principal) ==

== ENCOUNTER → 2023-06-26 | Outpatient (REF) | payer MEDICARE, MEDICAID ==
[2023-06-26 17:19] LABS: APPEARANCE, URINE HAZY (CLEAR); BACTERIA, URINE AUTO 1+ (NEGATIVE); BILIRUBIN, URINE AUTO NEGATIVE (NEGATIVE); BLOOD, URINE BLOOD 3+ (NEGATIVE); COLOR, URINE YELLOW (YELLOW); GLUCOSE, URINE (UA) AUTO NEGATIVE (NEGATIVE); KETONE, URINE AUTO NEGATIVE (NEGATIVE); LEUKOCYTE ESTERASE, URINE AUTO 3+ (NEGATIVE); MUCUS, URINE SMALL (NEGATIVE); NITRITE, URINE AUTO NEGATIVE (NEGATIVE); PROTEIN, URINE AUTO NEGATIVE (NEGATIVE); RBC, URINE AUTO 4 /HPF (0-3); SPECIFIC GRAVITY URINE AUTO 1.004 (1.002-1.035); SQUAMOUS EPITHELIAL CELL UR AU 1 /HPF (0-6); UROBILINOGEN, URINE AUTO 0.2 mg/dL (0.0-2.0); WBC, URINE AUTO 77 /HPF (0-3)
== END ==
LOC: M LAB REF 16:24
PROVIDERS: ATTEND Physician Assistant Medical
DX: N39.0 Urinary tract infection, site not specified (principal)

== ENCOUNTER → 2023-11-26 | Outpatient (CLI) | payer MEDICARE, MEDICAID | LOC: M WHC 13:02 | PROVIDERS: ATTEND Advanced Practice Midwife | DX: R92.323 Mammographic fibroglandular density, bilateral breasts (principal) | CPT/HCPCS: 76642; 77066; G0279 ==

== ENCOUNTER → 2024-04-13 | Outpatient (REF) | payer MEDICARE, MEDICAID, OTHER | LOC: M LAB REF 16:29 | PROVIDERS: ATTEND Pediatrics | DX: R30.0 Dysuria (principal) ==

== ENCOUNTER → 2024-11-18 | Outpatient (REF) | payer MEDICARE, MEDICAID, OTHER ==
[~2024-11-18] MED LIST changes: +GABA-1172; -GABA-282
[2024-11-18 19:24] LABS: BASO # 0.1 10^3/uL (0.0-0.2); EOS # 0.2 10^3/uL (0.0-0.5); EOS % 1.8 % (0.0-3.0); HEMATOCRIT 44.7 % (36.0-47.0); LYMPH # 2.9 10^3/uL (1.5-5.0); LYMPH % 31.8 % (24.0-44.0); MEAN CORPUSCULAR HEMOGLOBIN 28.7 pg (27.0-33.0); MEAN CORPUSCULAR HGB CONC 33.6 g/dl (32.0-36.5); MEAN CORPUSCULAR VOLUME 85.6 fl (80.0-96.0); MONO # 0.7 10^3/uL (0.0-0.8); MONO % 8.1 % (2.0-8.0); NEUTROPHILS # 5.2 10^3/uL (1.5-8.5); NEUTROPHILS % 57.1 % (36.0-66.0); PLATELET COUNT, AUTOMATED 238 10^3/uL (150-450); RED BLOOD COUNT 5.22 10^6/uL (4.00-5.40)
[2024-11-18 19:30] LABS: IRON (FE) 96 UG/DL (50-170)
[2024-11-18 19:31] LABS: FERRITIN 91.3 NG/ML (7.3-270.7); THYROID STIMULATING HORMONE 2.533 uIU/ML (0.55-4.78)
[2024-11-18 19:32] LABS: PERCENT SATURATION 31.7 % (13.2-45.0); TOTAL 25(OH) VITAMIN D 29.4 NG/ML (20.0-100.0); TOTAL IRON BINDING CAPACITY 303 UG/DL (250-425)
[2024-11-18 19:33] LABS: ALBUMIN 3.9 G/DL (3.2-5.2); ALKALINE PHOSPHATASE 112 U/L (35-104); ALT/SGPT 21 U/L (7.0-40); AST/SGOT 17 U/L (<34); BILIRUBIN,TOTAL 0.2 MG/DL (0.3-1.2); BLOOD UREA NITROGEN 17 MG/DL (9-23); CALCIUM LEVEL 9.2 MG/DL (8.5-10.1); CARBON DIOXIDE LEVEL 24 MMOL/L (20-31); CHLORIDE LEVEL 110 MMOL/L (98-107); CHOLESTEROL LEVEL 171 MG/DL (<200); CHOLESTEROL RISK RATIO 4.02 (<5); GLOMERULAR FILTRATION RATE > 60.0 (>51); GLUCOSE, FASTING 103 MG/DL (60-100); HDL CHOLESTEROL 42.5 MG/DL (>40); LDL CHOLESTEROL 70.7 MG/DL (<100); NON-HDL-C 128.5 MG/DL; POTASSIUM SERUM 4.5 MMOL/L (3.5-5.1); SODIUM LEVEL 143 MMOL/L (136-145); TOTAL PROTEIN 7.2 G/DL (5.7-8.2); TRIGLYCERIDES LEVEL 289 MG/DL (<150)
[2024-11-18 19:56] LABS: HIV 1&2 SCREEN NEGATIVE (NEGATIVE)
[2024-11-18 20:03] LABS: HEPATITIS C VIRUS ABY INDEX 0.04 INDEX (<0.8)
[2024-11-18 20:23] LABS: HEMOGLOBIN A1c 5.8 % (4.0-6.0)
== END ==
LOC: M LAB REF 17:48
PROVIDERS: ATTEND Physician Assistant
DX: D64.9 Anemia, unspecified (principal); Z11.9 Encounter for screening for infectious and parasitic diseases, unspecified; E66.9 Obesity, unspecified; E55.9 Vitamin D deficiency, unspecified; Z79.899 Other long term (current) drug therapy

== ENCOUNTER → 2024-12-02 | Outpatient (CLI) | payer MEDICARE, MEDICAID | LOC: M WHC 14:02 | PROVIDERS: ATTEND Advanced Practice Midwife | DX: Z12.31 Encounter for screening mammogram for malignant neoplasm of breast (principal); R92.333 Mammographic heterogeneous density, bilateral breasts ==

== ENCOUNTER → 2024-12-02 | Outpatient (REF) | payer MEDICARE, MEDICAID ==
[2024-12-06 15:52] LABS: HPV APTIMA Not Detected (Not Detected)
== END ==
LOC: M PLALAB 15:17
PROVIDERS: ATTEND Advanced Practice Midwife
DX: Z12.4 Encounter for screening for malignant neoplasm of cervix (principal); R87.610 Atypical squamous cells of undetermined significance on cytologic smear of cervix (ASC-US)
CPT/HCPCS: 87624; G0123

== ENCOUNTER → 2024-12-14 | Outpatient (CLI) | payer MEDICARE, MEDICAID | LOC: M PLAIMG 14:41 | PROVIDERS: ATTEND Physician Assistant | DX: J32.8 Other chronic sinusitis (principal) ==

== ENCOUNTER → 2025-01-02 | Outpatient (CLI) | payer MEDICARE, MEDICAID | LOC: M RAD 13:39 | PROVIDERS: ATTEND Physician Assistant | DX: Z12.2 Encounter for screening for malignant neoplasm of respiratory organs (principal); F17.210 Nicotine dependence, cigarettes, uncomplicated ==

== ENCOUNTER → 2025-01-04 | Outpatient (CLI) | payer MEDICARE, MEDICAID | LOC: M WHC 13:59 | PROVIDERS: ATTEND Advanced Practice Midwife | DX: N95.0 Postmenopausal bleeding (principal); N88.8 Other specified noninflammatory disorders of cervix uteri ==

== ENCOUNTER → 2025-01-20 | Outpatient (CLI) | payer MEDICARE, MEDICAID ==
[2025-01-24 19:13] LABS: D002-IGE D FARINAE MITE < 0.10 kU/L (<0.10); E001-IGE CAT EPITHELIUM/DANDER < 0.10 kU/L (<0.10); E005-IGE DOG DANDER/HAIR/EPITH < 0.10 kU/L (<0.10); G002-IGE BERMUDA GRASS < 0.10 kU/L (<0.10); G003-IGE ORCHARD GRASS < 0.10 kU/L (<0.10); G006-IGE TIMOTHY GRASS < 0.10 kU/L (<0.10); IgE CLADOSPORIUM HERBARUM < 0.10 kU/L (<0.10); M001-IGE PENICILLIUM CHRYSOGEN < 0.10 kU/L (<0.10); M003-IGE D pteronyssinus < 0.10 kU/L (<0.10); M006-IGE ALTERNARIA alternata < 0.10 kU/L (<0.10); M009-IGE FUSARIUM proliferatum < 0.10 kU/L (<0.10); MUCOR RACEMOSUS IGE < 0.10 kU/L (<0.10); STEMP BOTRYOSUM IGE < 0.10 kU/L (<0.10); T001-IGE MAPLE/BOX ELDER < 0.10 kU/L (<0.10); T003-IGE COMMON SILVER BIRCH < 0.10 kU/L (<0.10); T005-IGE BEECH (AMERICAN) < 0.10 kU/L (<0.10); T007-IGE OAK, WHITE < 0.10 kU/L (<0.10); T008-IGE ELM, AMERICAN WHITE < 0.10 kU/L (<0.10); T014-IGE COTTONWOOD < 0.10 kU/L (<0.10); T015-IGE ASH, WHITE < 0.10 kU/L (<0.10); T016-IGE PINE, WHITE < 0.10 kU/L (<0.10); W001-IGE RAGWEED, SHORT < 0.10 kU/L (<0.10); W003-IGE RAGWEED, GIANT < 0.10 kU/L (<0.10); W006-IGE MUGWORT < 0.10 kU/L (<0.10); W009-IGE PLANTAIN,ENGLISH < 0.10 kU/L (<0.10); W010-IGE LAMB'S QUARTER < 0.10 kU/L (<0.10); W012-IGE GOLDENROD < 0.10 kU/L (<0.10); W013-IgE COCKLEBUR IGE < 0.10 kU/L (<0.10)
[2025-01-25 03:11] LABS: T012-IGE WILLOW <0.10 kU/L (Class 0)
[2025-01-27 17:52] LABS: IGE HICKORY, WHITE < 0.10 kU/L (<0.10); M007-IGE BOTRYTIS cinerea < 0.10 kU/L (<0.10)
== END ==
LOC: M LAB 01-19 15:35
PROVIDERS: ATTEND Allergy & Immunology Allergy
DX: J31.0 Chronic rhinitis (principal)

== ENCOUNTER 2025-06-03 14:35 | Emergency (ER) | payer MEDICARE, MEDICAID ==
[~2025-06-03] VITALS: Ht 160 cm; Wt 75.6 kg
[~2025-06-03 14:35] MED LIST changes: +AMIT10TA11 PO; -AMIT10TA7 PO
[2025-06-03 16:27] VITALS: BP 149/69; TEMP 97.4; O2SAT 99
== END 2025-06-03 16:35 | disposition home or self-care (01) ==
LOC: M ED 14:35
DX: R09.89 Other specified symptoms and signs involving the circulatory and respiratory systems (principal); B34.8 Other viral infections of unspecified site; E11.9 Type 2 diabetes mellitus without complications; F17.200 Nicotine dependence, unspecified, uncomplicated; Z79.899 Other long term (current) drug therapy; Z88.1 Allergy status to other antibiotic agents; Z88.8 Allergy status to other drugs, medicaments and biological substances

== ENCOUNTER → 2025-07-18 | Outpatient (REF) | payer MEDICARE, MEDICAID ==
[2025-07-18 14:26] LABS: BASO # 0.1 10^3/uL (0.0-0.2); BASO % 0.7 % (0.0-1.0); EOS # 0.1 10^3/uL (0.0-0.5); EOS % 1.2 % (0.0-3.0); LYMPH # 2.9 10^3/uL (1.5-5.0); LYMPH % 26.8 % (24.0-44.0); MONO # 0.6 10^3/uL (0.0-0.8); MONO % 5.8 % (2.0-8.0); NEUTROPHILS # 6.9 10^3/uL (1.5-8.5); NEUTROPHILS % 65.3 % (36.0-66.0); PLATELET COUNT, AUTOMATED 245 10^3/uL (150-450)
[2025-07-18 14:31] LABS: CALCIUM LEVEL 8.8 MG/DL (8.5-10.1); CARBON DIOXIDE LEVEL 29 MMOL/L (20-31); CHLORIDE LEVEL 106 MMOL/L (98-107); CHOLESTEROL LEVEL 156 MG/DL (<200); CHOLESTEROL RISK RATIO 4.16 (<5); CREATININE FOR GFR 0.76 MG/DL (0.55-1.30); GLOMERULAR FILTRATION RATE > 90.0 (>51); LDL CHOLESTEROL 79.5 MG/DL (<100); NON-HDL-C 118.5 MG/DL; POTASSIUM SERUM 3.9 MMOL/L (3.5-5.1); SODIUM LEVEL 138 MMOL/L (136-145); TRIGLYCERIDES LEVEL 195 MG/DL (<150)
[2025-07-18 14:45] LABS: ESTIMATED AVERAGE GLUCOSE 123.0 MG/DL (60-110)
== END ==
LOC: M LAB REF 14:01
PROVIDERS: ATTEND Physician Assistant
DX: K58.2 Mixed irritable bowel syndrome (principal); R73.03 Prediabetes; Z79.899 Other long term (current) drug therapy

== ENCOUNTER → 2025-07-20 | Outpatient (REF) | payer MEDICARE, MEDICAID | LOC: M LAB REF 14:30 | PROVIDERS: ATTEND Physician Assistant | DX: K21.9 Gastro-esophageal reflux disease without esophagitis (principal) ==